=== PATIENT | female | born 1990 | race Caucasian/White ===

== ENCOUNTER 2016-08-16 02:19 | Emergency (ER) | payer MEDICAID ==
[~2016-08-16] VITALS: Ht 172.7 cm; Wt 77.3 kg
[2016-08-16 02:23] VITALS: BP 93/63; PULSE 74; RESP 16; O2SAT 99
--- NOTE | 2016-08-16 02:52 | ED.REPORT ---
HPI-Abd Pain F Under 40 Date of Service Aug 16, 2016 ED Provider: Juan Ramon Vang MD A 26 week 4 day female with a history of gallstones presents to the ED complaining of upper abdominal pain and vomiting x1. The pt was referred to the ED from [facility] following evaluation there. Per [facility] staff, heart tones were in the 130's and the pt was not experiencing contractions. The pt was seen at [facility] for her pain. Nursing Notes Stated Complaint: ABD PAIN Chief Complaint: Female Abdominal Pain Nursing Notes Reviewed: Yes Allergies: Coded Allergies: ibuprofen (Verified Allergy, Unknown, 08/16/16) General Time Seen by MD: 02:52 Chief Complaint Abdominal pain Hx Obtained From: Patient Arrived By: Walk-in Sudden in Onset?: No Recent Healthcare: Recent doctor visit, Recent hospitalization Similar Sx Previous: Yes Past Medical History Past Medical History gallstones Past Surgical History none reported Smoking History Unknown if Ever Smoker Social History Other Social History: Good social support Ambulatory Status Independent Review of Systems Constitutional: Denies: Fever Respiratory: Denies: Non-productive cough, Shortness of breath Cardiovascular: Denies: Chest pain GI: Reports: Abdominal pain, Nausea, Vomiting Musculoskeletal: Denies: Back pain, Neck pain Complete sys rev & neg: except as marked. Skin: Denies Rash Physical Exam Initial Vital Signs Vital Signs (First) Date Time Temp Pulse Resp B/P Pulse Ox O2 Delivery O2 Flow Rate FiO2 08/16/16 02:23 35.9 74 16 93/63 99 Room Air Initial VS: Reviewed, Vital signs normal General/Constitutional: Awake, Alert Respiratory / Chest: Atraumatic, Breath sounds NL, Breath sounds = bilat, No respiratory distress Cardiovascular: Heart rate NL, Regular rhythm, Heart sounds NL Abdomen: Atraumatic, Soft RUQ tenderness Back: Atraumatic, Full range of motion Head / Eyes: Atraumatic, Normocephalic, PERRL, EOMI ENT: Atraumatic, Airway patent, Mucous membranes moist Skin: Atraumatic, Color NL, No rash, Warm, Dry Neurologic: Oriented X3, Speech NL, No motor deficits, No sensory deficits Neck: Atraumatic, Supple, Full range of motion Upper Extremity / MS: Atraumatic, Full range of motion Lower Extremity / Pelvis / MS: Atraumatic, Full range of motion Psychiatric: Affect NL, Mood NL Interpretation & Diagnostics Interpretation & Diagnostics: US : IMPRESSION: Intrauterine gestation with anterior normal-appearing placenta, amniotic fluid index 18.9. Breech position. Maternal cholelithiasis. Mildly prominent common hepatic duct. Lab Results Interpretation Result Diagram: 08/16/16 0051 08/16/16 0051 Test 08/16/16 00:51 White Blood Count 16.2th/mm3 (3.8-10.1) Red Blood Count 3.60mil/mm3 (3.90-5.20) Hemoglobin 11.3g/dL (12.0-15.6) Hematocrit 33.2% (35.0-46.0) Mean Corpuscular Volume 92.2fL (81-100) Mean Corpuscular Hemoglobin 31.4pg (27.0-35.0) Mean Corpuscular Hemoglobin Concent 34.0% (32.0-37.0) Red Cell Distribution Width 12.9% (12.3-15.4) Platelet Count 306bil/L (150-400) Neutrophils (%) (Auto) 84.6% (40-74) Lymphocytes (%) (Auto) 9.2% (14-46) Monocytes (%) (Auto) 5.3% (4-12) Eosinophils (%) (Auto) 0.3% (0-5) Basophils (%) (Auto) 0.1% (0-3) Hold Purple Top Tube Received (Received) Sodium Level 135mEq/L (134-144) Potassium Level 3.3mEq/L (3.5-5.2) Chloride Level 99mEq/L (97-108) Carbon Dioxide Level 21mmol/L (18-29) Blood Urea Nitrogen 8mg/dL (6-20) Creatinine 0.49mg/dL (0.57-1.00) Estimat Glomerular Filtration Rate 217mL/min (>59) Glucose Level 78mg/dL (60-99) Calcium Level 8.5mg/dL (8.5-10.1) Magnesium Level 1.7mg/dL (1.6-2.6) Total Bilirubin 0.4mg/dL (0.0-1.2) Aspartate Amino Transf (AST/SGOT) 33U/L (0-50) Alanine Aminotransferase (ALT/SGPT) 20U/L (0-32) Alkaline Phosphatase 78U/L (25-150) Total Protein 6.6g/dL (6.4-8.4) Albumin 3.1g/dL (3.4-5.0) Lipase 34U/L (13-60) Hold [place]vere Top Tube Received (Received) Lab Results Interpretation: Mild elevation of white blood count ( patient) Re-Eval/Medical Decision Med Decision/Clinical Course Biliary colic without evidence of cholecystitis, hepatitis, pancreatitis, or ductal dilatation. Instructed on avoiding large meals and fatty foods. She will follow up with her primary doctor later this week. Source of Hx: Old records Re-Evaluation/Progress : Time of Eval: 04:42 Patient Status: Condition improved Re-Evaluation/Progress Note: Pt rechecked, who is resting. Lab results and diagnosis are discussed, as well as the plan for discharge. The pt understands and agrees with the plan. All questions are addressed at this time. Counseled Regarding: Diagnosis, Lab results, Need for follow-up, When/why to return to ED Discharge & Departure Primary Impression: Cholelithiasis Cholelithiasis location: gallbladder Cholecystitis presence: without cholecystitis Biliary obstruction: without biliary obstruction Qualified Code : K80.20 - Calculus of gallbladder without cholecystitis without obstruction Additional Impression: Weeks of gestation: 26 weeks Qualified Code: Z3A.26 - 26 weeks gestation of Disposition: Home Discharge Condition All VS Reviewed: Yes Condition: Stable Patient Instructions: Cholelithiasis (DC) Additional Instructions: You have multiple small gallstones in her gallbladder. When you eat a large or fatty meal, the gallbladder contracts forcefully making one of the stones get stuck in the neck of the gallbladder. Than as your food digests it gallbladder relaxes in the stone drops back down into the main part of the gallbladder. No evidence of infection or inflammation of the elbow or liver or pancreas. No head no evidence of blocked ducts. Avoid large meals or fatty foods. Return as needed if he have recurrent pain. Contact your regular doctor for further evaluation and treatment of this. Referrals: Rosalinda Quinteros MD (PCP) Scribe Attestation Portions of this note were transcribed by Margie Berman. I, Dr. Vang personally performed the history, physical exam and medical decision-making; I reviewed and confirmed the accuracy of the information in the transcribed note. Signed by: Brian Gerber, 08/16/2016 and 05:04. copies to: Rosalinda Quinteros MD, Juan Ramon Mcfarlane MD Aug 16, 2016 02:52 MARGIE BERMAN Aug 16, 2016 03:11
[2016-08-16] MEDS ORDERED: 0.9% Sodium Chloride 1,000 ML IV ONE (02:53)
[2016-08-16] MEDS ORDERED: Ondansetron 2 mg/mL 2 mL Inj IVPUSH PRN (02:55)
[2016-08-16 03:10] LABS: BASOPHILS % (AUTO) 0.1 % (0-3); EOSINOPHILS % (AUTO) 0.3 % (0-5); MONOCYTES % (AUTO) 5.3 % (4-12); Mean Corpuscular Hemoglobin 31.4 pg (27.0-35.0); Mean Corpuscular Volume 92.2 fL (81-100); NEUTROPHILS % (AUTO) 84.6 % (40-74); Platelet Count 306 bil/L (150-400)
[2016-08-16 03:27] LABS: Magnesium 1.7 mg/dL (1.6-2.6)
[2016-08-16 05:02] VITALS: BP 101/67; PULSE 92; RESP 20; O2SAT 99
[2016-12-14] MEDS ORDERED: PREN-100 PO (16:59)
[2016-12-14] MEDS ORDERED: SERT50TA9 PO (16:59)
[2016-12-14] MEDS ORDERED: MULT-1018 PO (16:59)
== END 2016-08-16 05:04 | disposition home or self-care (01) ==
LOC: SED 02:19
DX: O99.612 Diseases of the digestive system complicating pregnancy, second trimester (principal); K80.20 Calculus of gallbladder without cholecystitis without obstruction; Z3A.26 26 weeks gestation of pregnancy
CPT/HCPCS: 36415; 80053; 83690; 83735; 85025; 96374; 99285; J2405

== ENCOUNTER 2016-10-12 21:47 | Emergency (ER) | payer MEDICAID ==
[~2016-10-12] VITALS: Ht 172.7 cm; Wt 79.5 kg
[2016-10-12 22:07] VITALS: BP 139/88; PULSE 105; RESP 16; O2SAT 96
--- NOTE | 2016-10-12 22:49 | ED.REPORT ---
HPI-Abd Pain F Under 40 Date of Service Oct 12, 2016 ED Provider: Eric Valente DO A 34 week female with a history of gallstones earlier in her presents to the ED complaining of RUQ abdominal pain. The pain began today, accompanied by nausea, vomiting, and diarrhea x3. The pt was initially seen in the [facility], where she was cleared to come to the ED. The pt experienced similar symptoms earlier in her and was diagnosed with cholelithiasis. She has been controlling this with diet since. The pt denies any known history of kidney stones. Nursing Notes Stated Complaint: STOMACH PAIN-SEEN IN [facility] Chief Complaint: Female Abdominal Pain Nursing Notes Reviewed: Yes Allergies: Coded Allergies: ibuprofen (Verified Allergy, Unknown, 08/16/16) General Time Seen by MD: 22:49 Chief Complaint Abdominal pain Hx Obtained From: Patient Arrived By: Walk-in Sudden in Onset?: No Onset Occurred: 5 - 8 hours ago Symptom Duration: Since onset Recent Healthcare: No recent hospitalization, Recent doctor visit Similar Sx Previous: Yes Past Medical History Past Medical History gallstones during Past Surgical History none reported Smoking History Unknown if Ever Smoker Social History Other Social History: Good social support Ambulatory Status Independent Review of Systems Constitutional: Denies: Fever Respiratory: Denies: Non-productive cough Cardiovascular: Denies: Chest pain GI: Reports: Abdominal pain, Diarrhea, Nausea, Vomiting Musculoskeletal: Denies: Back pain, Neck pain Complete sys rev & neg: except as marked. Physical Exam Initial Vital Signs Vital Signs (First) Date Time Temp Pulse Resp B/P Pulse Ox O2 Delivery O2 Flow Rate FiO2 10/12/16 22:07 36.2 105 16 139/88 96 Room Air Initial VS: Reviewed General/Constitutional: Awake, Alert moderate distress due to pain Respiratory / Chest: Atraumatic, Breath sounds NL, Breath sounds = bilat, No respiratory distress Cardiovascular: Heart rate NL, Regular rhythm, Heart sounds NL Abdomen: Atraumatic, Soft RUQ tenderness Back: Atraumatic, Full range of motion Head / Eyes: Atraumatic, Normocephalic, PERRL, EOMI ENT: Atraumatic, Airway patent, Mucous membranes moist Skin: Atraumatic, Color NL, No rash, Warm, Dry Neurologic: Oriented X3, Speech NL, No motor deficits, No sensory deficits Neck: Atraumatic, Supple, Full range of motion Upper Extremity / MS: Atraumatic, Full range of motion Lower Extremity / Pelvis / MS: Atraumatic, Full range of motion Psychiatric: Affect NL, Mood NL Interpretation & Diagnostics Interpretation & Diagnostics: US Abdomen: CONCLUSION: Gallstones without evidence of cholecystitis. Mild dilation of the partially visualized common duct measuring 6 mm. Lab Results Interpretation Result Diagram: 10/12/168 10/12/16 2248 Test 10/12/16 22:48 White Blood Count 15.0th/mm3 (3.8-10.1) Red Blood Count 3.93mil/mm3 (3.90-5.20) Hemoglobin 11.6g/dL (12.0-15.6) Hematocrit 35.0% (35.0-46.0) Mean Corpuscular Volume 89.1fL (81-100) Mean Corpuscular Hemoglobin 29.5pg (27.0-35.0) Mean Corpuscular Hemoglobin Concent 33.1% (32.0-37.0) Red Cell Distribution Width 12.1% (12.3-15.4) Platelet Count 271bil/L (150-400) Neutrophils (%) (Auto) 79.7% (40-74) Lymphocytes (%) (Auto) 13.7% (14-46) Monocytes (%) (Auto) 5.9% (4-12) Eosinophils (%) (Auto) 0.3% (0-5) Basophils (%) (Auto) 0.1% (0-3) Band Neutrophils % 0% (1-5) Sodium Level 136mEq/L (134-144) Potassium Level 3.7mEq/L (3.5-5.2) Chloride Level 100mEq/L (97-108) Carbon Dioxide Level 21mmol/L (18-29) Blood Urea Nitrogen 6mg/dL (6-20) Creatinine 0.58mg/dL (0.57-1.00) Estimat Glomerular Filtration Rate 177mL/min (>59) Glucose Level 94mg/dL (60-99) Calcium Level 8.9mg/dL (8.5-10.1) Magnesium Level 1.7mg/dL (1.6-2.6) Total Bilirubin 0.6mg/dL (0.0-1.2) Aspartate Amino Transf (AST/SGOT) 24U/L (0-50) Alanine Aminotransferase (ALT/SGPT) 26U/L (0-32) Alkaline Phosphatase 156U/L (25-150) Total Protein 6.8g/dL (6.4-8.4) Albumin 3.3g/dL (3.4-5.0) Lipase 33U/L (13-60) Pulse Oximetry Interpretation Pulse Oximetry Interpretation: 96% on room air Pulse Oximetry: Pulse Ox normal Re-Eval/Medical Decision Med Decision/Clinical Course Laboratory work reassuring. Ultrasound shows stones but no signs of cholecystitis. Fetus looks good. She has been cleared by OB. After some Dilaudid and fluids she looked and felt better. Her abdomen was normal longer tender. She is no longer having pain. I consulted with Dr. Bernal. We will go and discharge her home. Short course of Percocet prescribed for pain. Gallstone aftercare instructions. Opiate warnings. Close obstetric follow-up recommended. Source of Hx: Old records Re-Evaluation/Progress #1: Time of Eval: 00:34 Re-Evaluation/Progress Note: Pt rechecked, whose condition has improved. She is informed of her US results and the plan for further treatment. Re-Evaluation/Progress #2: Time of Eval: 01:07 Patient Status: Condition improved Re-Evaluation/Progress Note: Pt rechecked, who feels prepared for discharge. The plan for discharge is discussed. The pt understands and agrees with the plan. All questions are addressed at this time. Consultation : Referral / Consult Name: Live Bernal MD Call Returned at: 01:14 Diabetes Educator: Agrees with eval, Agrees with plan Note: Spoke with Dr. Bernal, warehouse distribution specialist for pt's PCP, regarding pt's case. Dr. Bernal agrees with the evaluation and plan. Counseled Regarding: Diagnosis, Lab results, Need for follow-up, When/why to return to ED Discharge & Departure Primary Impression: Cholelithiasis Cholelithiasis location: gallbladder Cholecystitis presence: without cholecystitis Biliary obstruction: without biliary obstruction Qualified Code : K80.20 - Calculus of gallbladder without cholecystitis without obstruction Additional Impression: Biliary colic Disposition: Home Discharge Condition All VS Reviewed: Yes Condition: Stable Patient Instructions: Biliary Colic (ED), Cholelithiasis (GEN) Additional Instructions: Maintain a bland, low fat diet for the next few days. Read the aftercare instructions provided. Call in the morning to arrange a follow up appointment with your primary care physician. Review the results of your ultrasound during this appointment. Take 1-2 Percocet every 6-8 hours as needed for severe pain. Do not drink, drive, or consume acetaminophen while taking the Percocet. Take Zofran every 8 hours as needed for nausea. Return to the emergency department if you develop any new or worsening symptoms including fever, jaundice, or increasing/worsening pain. Let your doctor know that you are taking pain medications if you go into labor. Referrals: Rosalinda Quinteros MD (PCP) Brian Attestation Portions of this note were transcribed by Margie Berman. I, Dr. Valente personally performed the history, physical exam and medical decision-making; I reviewed and confirmed the accuracy of the information in the transcribed note. Signed by: Brian Gerber, 10/13/2016 and 0115. copies to: Rosalinda Quinteros MD, Todd P DO Oct 12, 2016 22:49 MARGIE BERMAN Oct 12, 2016 23:14
[2016-10-12] MEDS ORDERED: Ondansetron 2 mg/mL 2 mL Inj ONE (22:50)
[2016-10-12] MEDS ORDERED: HYDROmorphone 0.5 mg/0.5 mL iSecure Syringe ONE (22:50)
[2016-10-12] MEDS ORDERED: HYDROmorphone 0.5 mg/0.5 mL iSecure Syringe IVPUSH PRN (22:50)
[2016-10-12] MEDS ORDERED: Ondansetron 2 mg/mL 2 mL Inj IVPUSH PRN (22:50)
[2016-10-12 22:54] LABS: BASOPHILS % (AUTO) 0.1 % (0-3); EOSINOPHILS % (AUTO) 0.3 % (0-5); MONOCYTES % (AUTO) 5.9 % (4-12); Mean Corpuscular Hemoglobin 29.5 pg (27.0-35.0); Mean Corpuscular Volume 89.1 fL (81-100); NEUTROPHILS % (AUTO) 79.7 % (40-74); Platelet Count 271 bil/L (150-400)
[2016-10-12 23:21] LABS: Magnesium 1.7 mg/dL (1.6-2.6)
[2016-10-13] MEDS ORDERED: _Ondansetron ODT 4 mg Tablet PO PRN (01:10)
[2016-10-13] MEDS ORDERED: _oxyCODONE/APAP 5-325 mg Tablet PO PRN (01:10)
[2016-10-13] MEDS ORDERED: oxyCODONE-Acetamin 5-325 mg Tablet PO ONE (01:45)
[2016-10-13 01:53] VITALS: BP 122/74; PULSE 76; RESP 14; O2SAT 99
--- NOTE | 2016-10-13 14:31 | DRSVH ---
PROCEDURE: US ABDOMEN ([id number]) INDICATIONS: concern for biliary dz TECHNIQUE: Real-time scanning was performed of the abdominal and retroperitoneal organs, with image documentatio n. COMPARISON: None. FINDINGS: Liver: Liver is normal in size and homogeneous in echotexture. Gallbladder: Multiple gallstones present, several which may be impacted within the gallbladder neck. No gallbladder wall thickening or pericholecystic fluid. Negative sonographic Beltre sign. Biliary ducts: Intrahepatic bile ducts are non-dilated. Extrahepatic bile duct caliber measures 2.6 mm. Normal is 6-7 mm or less in diameter, or 10 mm or less post-cholecystectomy. Pancreas: Visualized portions of the pancreas are sonographically normal. Spleen: Spleen is normal in size and homogeneous in echotexture. Kidneys: Kidneys are normal in size and echotexture. Right kidney measures 11.7 cm long; left kidne y measures 11.6 cm long. No hydronephrosis or nephrolithiasis. No solid masses. Aorta: Visualized aorta is normal in caliber at less than 3 cm. Iliacs: Proximal common iliac arteries are normal in caliber at less than 2.5 cm. IVC: Intrahepatic inferior vena cava is patent. Miscellaneous: No free abdominal fluid. Patient is ampullary measured at 143 beats per min malu. IMPRESSION: 1. Cholelithiasis without evidence of cholecystitis and several of the stones may be impacted. Corre late clinically. Dictated by: Cecilio Aguilar [facility] Interpreted: Charis De Luna MD on 10/13/2016 at 14:28 Transcribed by: JOELLEN on 10/13/2016 at 14:30 Approved by: Charis De Luna MD, PhD on 10/13/2016 at 17:24
[2016-12-14] MEDS ORDERED: MULT-1018 PO (16:59)
[2016-12-14] MEDS ORDERED: PREN-100 PO (16:59)
[2016-12-14] MEDS ORDERED: SERT50TA9 PO (16:59)
== END 2016-10-13 01:56 | disposition home or self-care (01) ==
LOC: SED 21:47
DX: O99.613 Diseases of the digestive system complicating pregnancy, third trimester (principal); K80.20 Calculus of gallbladder without cholecystitis without obstruction; Z3A.34 34 weeks gestation of pregnancy; Z87.59 Personal history of other complications of pregnancy, childbirth and the puerperium; Z88.6 Allergy status to analgesic agent
CPT/HCPCS: 36415; 76700; 80053; 83690; 83735; 85025; 96374; 96375; 99285; J1170; J2405

== ENCOUNTER 2016-11-12 22:36 | Inpatient (IN) | payer MEDICAID ==
[~2016-11-12] VITALS: Ht 172.7 cm; Wt 80.7 kg
[2016-11-12] MEDS ORDERED: hydrOXYzine Inj 50 MG/1 mL SDV IM ONE (23:30)
[2016-11-13] MEDS ORDERED: Lactated Ringer's 1,000 ML IV PRN (00:06)
[2016-11-13] MEDS ORDERED: fentaNYL-PF 50 mCg/mL 2 mL Inj IVPUSH PRN (00:10)
[2016-11-13] MEDS ORDERED: Sodium Chloride LOK Flush 10 mL Syringe IVFLUSH PRN (00:10)
[2016-11-13] MEDS ORDERED: Oxytocin 30 Units/500 mL LR 30 UNITS in IV Premix 1 EACH IV PRN ×2 (00:10→11:00)
[2016-11-13] MEDS ORDERED: Carboprost 250 mCg/mL Inj IM PRN ×2 (00:10→11:00)
[2016-11-13] MEDS ORDERED: Oxytocin 10 Unit/mL Inj IM PRN ×2 (00:10→11:00)
[2016-11-13] MEDS ORDERED: Methylergonovine 0.2 mg/mL Inj IM PRN ×2 (00:10→11:00)
[2016-11-13] MEDS ORDERED: Hemorrhage Kit, Post Partum XX ONE ×2 (00:10→11:00)
[2016-11-13 01:09] LABS: Mean Corpuscular Hemoglobin 28.2 pg (27.0-35.0)
[2016-11-13] MEDS ORDERED: Oxytocin 30 Units/500 mL LR Premix IV SCH (03:35)
[2016-11-13] MEDS ORDERED: Lactated Ringer's 1,000 ML IV SCH ×2 (03:43→10:57)
[2016-11-13] MEDS ORDERED: Lactated Ringer's 500 ML IV ONE (03:43)
[2016-11-13] MEDS ORDERED: Ondansetron 2 mg/mL 2 mL Inj IVPUSH PRN (03:45)
[2016-11-13] MEDS ORDERED: fentaNYL 2 mCg/mL-Bupiv 0.125% 100 ML EPIDURAL SCH (03:45)
[2016-11-13] MEDS ORDERED: EPHEDrine Sulfate 50 mg/mL Inj IVPUSH PRN (03:45)
[2016-11-13] MEDS ORDERED: Atropine 1 mg/10 mL (Code) Syringe IVPUSH PRN (03:45)
[2016-11-13] MEDS ORDERED: PNV91TAB6 PO (04:00)
[2016-11-13] MEDS ORDERED: SERT20OR6 PO (04:01)
--- NOTE | 2016-11-13 04:40 | PCM.HPANE ---
Patient Data Date of Service: Nov 13, 2016 Surgeon Admitting Provider:Rosalinda Quinteros MD Attending Provider:Rosalinda Quinteros MD Primary Care Physician:Rosalinda Quinteros MD Other Provider:Tracy Castillo Anesthesia Reason for Visit Term Labor TERM LABOR Ht/WT & BMI Body Mass Index Allergies Coded Allergies: ibuprofen (Verified Allergy, Unknown, 08/16/16) Past Anesthesia History Anesthesia History: Denies:: Abnormal Airway Diabetes History Hx Diabetes?: No MRSA MRSA: No Medications Hypertension Medication: No Reported Medications Sertraline HCl (Sertraline)20 Mg/1 Ml Oral.conc50 Mg PO DAILY PRN AD #1 BOTTLE Ref 0 11/13/16 Pnv95/Ferrous Fumarate/FA ( Vitamin Tablet)28 Mg Iron-800 Mcg Tablet1 Each PO DAILY 11/13/16 History Hx of Heart Problems?: No Cardiovascular History: Denies:: Congestive Heart Failure Hypertension Hx of Respiratory Problem?: No Respiratory History: Denies:: Tuberculosis Hx of GI Problems?: Yes (biliary colic with ) Hx Surgeries?: No Hx Diabetes: No Hx Alcohol Use: NoHx Substance Use: No Smoking Status: Unknown if Ever Smoker Have You Smoked inLast 12 mo: No Stop/Bang Risk Assessment Category Category 1A: Patient has history of documented sleep apnea, and HAS NOT received any narcotic, sedative or anesthesia administration during this stay. Category 1B: Patient has history of documented sleep apnea, and HAS received any narcotic , sedative or anesthesia administration during this stay Category 2: Patient has SUSPECTED Obstructive Sleep Apnea, and HAS received any narcotic , sedative or anesthesia administration during this stay. Category 3: Patient has SUSPECTED Obstructive Sleep Apnea and HAS NOT received narcotic, sedative or anesthesia administration during this stay. Category 4: Outpatient in Procedural Areas with known sleep apnea or who screen positive for High Risk via the STOP/BANG questionnaire. Exam Exam Vital Signs bp 138/75, hr 80 prior to placement, 100% on room air, breathing comfortably, afebrile General Appearance: Alert, Oriented X3, Cooperative HEENT/AIRWAY: MP 1 Lungs: Clear to Auscultation Heart: Exam Unremarkable, Regular Rate/Rhythm, Normal S1, Normal S2 Meds/Labs/Diagnostics Labs Test 11/13/16 00:55 White Blood Count 12.8th/mm3 (3.8-10.1) Red Blood Count 3.93mil/mm3 (3.90-5.20) Hemoglobin 11.1g/dL (12.0-15.6) Hematocrit 34.2% (35.0-46.0) Mean Corpuscular Volume 87.0fL (81-100) Mean Corpuscular Hemoglobin 28.2pg (27.0-35.0) Mean Corpuscular Hemoglobin Concent 32.5% (32.0-37.0) Red Cell Distribution Width 13.2% (12.3-15.4) Platelet Count 252bil/L (150-400) Plan Impression Patient chart reviewed, patient interviewed and anesthestic plan with risks, benefits, and alternatives discussed, and informed consent obtained. ASA Physical Status: ASA2 Mod Systemic Disease Anesthetic Plan: Epidural Bene/Risks/Altern/Consents: Yes HP Complete Prior to Induction: Yes Ildefonso Jimenez MD Nov 13, 2016 03:48
[2016-11-13] MEDS ORDERED: Sodium Chloride LOK Flush 10 mL Syringe IVFLUSH SCH (08:30)
--- NOTE | 2016-11-13 09:04 | PCM.HPOB ---
Subjective Date of Service: Nov 13, 2016 Referring Provider: Admitting Physician: Rosalinda Quinteros MD Primary Care Physician: Rosalinda Quinteros MD Attending Physician: Rosalinda Quinteros MD Chief Complaint at 39+1 weeks with painful contractions and intermittent fluid leaking PV History of Present History of Present Illness Patient is a pleasant 26 year who has had regular PN care and came to the Center yesterday morning with mild contractions. She thought she had passed her mucous plug at home. She was appropriately monitored, and FHR was reassuring, and she was d/c home, as she was 1 cm dilated and 50% effaced at that time, and only yash every 8 to 10 minutes. Patient reports that her contractions started picking up by 6pm last evening, and she came back to the Center and was 2 cm/50% effaced and yash every 4 to 5 minutes. She also reported intermittent clear fluid PV and amnisure was positive when tested, and she was admitted. Her contractions picked up a little overnight, and she had an epidural placed at 04:00 this morning. She was 3 cm and 75% effaced at that time. She has been sleeping off and on since that time. When checked currently, she was 5 to 6 cm. 100% effaeced, with vertex at spines to -1 station. AROM of her forewaters was done for a moderate amount of clear fluid with normal bloody show. She is on pitocin augmentation and is currently at 10 milliunits /minute. FHR baseline is in the 130's with good BTBV, there are sleep wake cycles with periods of minimal variability. GBS is negative, and vital signs have been stable. is anticipated, and EFW 7 to 7 1/2 lb range. her has been complicated by recurrent episodes of biliary colic, with 2 ER visits for this with nausea, and vomiting and upper abdominal pain. She has been seen by Dr. Gutierrez for this and gallbladder surgery is planned electively in the . OB History: (2), Para (0), Term (0), Pre-term (0), ( 1), Living (0) Obstetrical Complications: Other ( was complicated by recurrent biliary colic) Past Medical History Obstetrical History: She had miscarriage at 6 weeks GA back in 2007, passed on it own, with no complications. Gynecologic History: Patient has not had any STD's or abnormal pap smears. Medical History: She has had depression in the past, and this did flare up in the . She was started on Sertraline and dose titrated to 75mg daily, and she has done well with this. 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 She had an isolated seizure at the age of 16, and fractured her femur in infancy due to accidental ground level fall. This was treated with closed reduction and casting. Surgical History: She has not had any previous surgeries. Social History: She is , and has some college education. She has worked in a [employer]. Hx Tobacco Use: Yes Smoking Status: Former Smoker Hx Alcohol Use: No Hx Substance Use: No (she was smuking 1 ppd prior to .) Past Family History Living Arrangement: with Family Genetic Screening/Counseling Genetic Screening/Counseling: Unknown Baby father-had child w defect: No Review of Systems Constitutional: Y: Change of appitite, Dizziness, Fever Eyes: Denies: Blurred Vision, Pain, Redness, Vision Changes ENT: Reports: Dental Problems, Denies: Ear Pain, Nasal Congestion, Throat Pain Cardiovascular: Denies: Chest Pain, Edema Respiratory: Denies: Cough, SOB with Exertion Gastrointestinal: Denies: Abdominal Pain, Constipation, Diarrhea, Heartburn, Nausea, Vomiting Genitourinary: Denies: Dysuria, Hematuria Musculoskeletal: Denies: Redness, Swelling Skin/Breasts: Denies: Bruising, Discharge Skin: Denies: Jaundice Neurological: Denies: Change in Speech Psychologic: Denies: Anxious, Depression Hematologic: Denies: Adenopathy Medications Home medications vitamins 1 tab PO dialy Sertraline 75mg PO daily Allergy Coded Allergies: ibuprofen (Verified Allergy, Unknown, 08/16/16) Exam Vital Signs 98/58 to 109/69, Temp 37.1, HR 78 Exam FHR 130 to 140's with good BTBV, good accelerations. Some clear sleep wake cycles with decreased variability. Constitutional: Well-developed, Well-nourished, Normal habitus HEENT: PERRLA, EOMI, Mucous Membr Moist/[place] Lungs: Clear to Auscultation, Normal Air Movement Heart: Regular Rate/Rhythm, Normal S1, Normal S2, No Murmurs/Rubs/Gallops Abdomen: Gravid, Normal bowel sounds, Soft, No tenderness Lymphatic: Normal: Neck Palpation of Nodes Extremities: Pulses Palpable x4, Warm, No Edema Neurological/Psychiatric: Alert, Oriented X3, Cooperative, No Acute Distress Neuro: Grossly Neurologically Intact Labs/Diagnostics Labs her blood type is O+ with no abnormal antibodies. Hemoglobin was 11.1, platelets 252. pap test was negative, rubella and varicella are immune, RPR was nonreactive, urine culture showed mixed urogenital kiana, hepatitis B s Ag was negative, Hepatitis C < 0.1, TSH was normal at 1.39. HSV types 1 and 2 are both negative. GC/Chlamydia was negative. GBS was negative, GTT was 107. Maternal Blood Type: O Hx Rho(D) Immune Globulin: No Antibody Screen: negative Group B Strep Results: Negative Previous Infant with GBS: No Rubella: Immune Lab History: Negative for: Hx Chicken Pox, Hx Gonorrhea, Hx HIV, Hx Herpes, Hx Syphilis OB Intrapartum Assessment/Plan Assessment patient is a very pleasant 26 year old female who has had regular PN care and started in labor at 39+1 weeks yesterday evening. She has been laboring overnight, and epidural has been placed. Pitocin augmentation was started, and is at 10milliunits/minute. AROM was done of the forebag of benitez for clear fluid with normal bloody show. has been complicated by biliary colic, and patient was consulted by surgery for this recently; cholecystectomy is planned . FHR is 130's and reactive. Problems: (1) 39 weeks gestation of Status: Acute ICD Code: Z3A.39 (2) History of biliary colic Status: Acute ICD Code: Z87.19 Pain Evaluation: Adequate Pain Control Rosalinda Quinteros MD Nov 13, 2016 09:04
[2016-11-13] MEDS ORDERED: LANOlin HPA 7 Gm Ointment TOPICAL PRN (11:00)
--- NOTE | 2016-11-13 11:01 | PCM.HPOB ---
Subjective Referring Provider: Admitting Physician: Rosalinda Quinteros MD Primary Care Physician: Rosalinda Quinteros MD Attending Physician: Rosalinda Quinteros MD Chief Complaint at 39+1 weeks with painful contractions and intermittent fluid leaking PV History of Present History of Present Illness Patient is a pleasant 26 year who has had regular PN care and came to the Center yesterday morning with mild contractions. She thought she had passed her mucous plug at home. She was appropriately monitored, and FHR was reassuring, and she was d/c home, as she was 1 cm dilated and 50% effaced at that time, and only yash every 8 to 10 minutes. Patient reports that her contractions started picking up by 6pm last evening, and she came back to the Center and was 2 cm/50% effaced and yash every 4 to 5 minutes. She also reported intermittent clear fluid PV and amnisure was positive when tested, and she was admitted. Her contractions picked up a little overnight, and she had an epidural placed at 04:00 this morning. She was 3 cm and 75% effaced at that time. She has been sleeping off and on since that time. When checked currently, she was 5 to 6 cm. 100% effaeced, with vertex at spines to -1 station. AROM of her forewaters was done for a moderate amount of clear fluid with normal bloody show. She is on pitocin augmentation and is currently at 10 milliunits /minute. FHR baseline is in the 130's with good BTBV, there are sleep wake cycles with periods of minimal variability. GBS is negative, and vital signs have been stable. is anticipated, and EFW 7 to 7 1/2 lb range. her has been complicated by recurrent episodes of biliary colic, with 2 ER visits for this with nausea, and vomiting and upper abdominal pain. She has been seen by Dr. Gutierrez for this and gallbladder surgery is planned electively in the . Blood pressures during the have been normal, and weight gain was 16 pounds. Genetic Screening/Counseling Genetic Screening/Counseling: Unknown Baby father-had child w defect: No Allergy Coded Allergies: ibuprofen (Verified Allergy, Unknown, 08/16/16) Labs/Diagnostics Maternal Blood Type: O Hx Rho(D) Immune Globulin: No Antibody Screen: negative Group B Strep Results: Negative Previous with GBS: No Rubella: Immune Lab History: Negative for: Hx Chicken Pox, Hx Gonorrhea, Hx HIV, Hx Herpes, Hx Syphilis OB Intrapartum Assessment/Plan Problems: (1) 39 weeks gestation of Status: Acute ICD Code: Z3A.39 (2) History of biliary colic Status: Acute ICD Code: Z87.19 Pain Evaluation: Adequate Pain Control Rosalinda Quinteros MD Nov 13, 2016 11:01
--- NOTE | 2016-11-13 11:07 | PCM.OBVAG ---
Vaginal Delivery Date of Service Nov 13, 2016 Pre Operative Diagnosis Pre Operative Diagnosis #1. at 39 weeks +1 day with spontaneous labor #2. Pitocin augmentation of labor #3. Epidural analgesia #4. Spontaneous vaginal delivery of a live born female infant with a nuchal and body cord. Post Operative Diagnosis Post Operative Diagnosis #1. at 39 weeks +1 day with spontaneous labor #2. Pitocin augmentation of labor #3. Epidural analgesia #4. Spontaneous vaginal delivery of a live born female infant with a nuchal and body cord Procedure Obstetical Procedure: Normal Spontaneous Vaginal Delivery, Episiotomy College Service Officer/Concrete Hopper Operator Provider and Concrete Hopper Operator: Dr. Rosalinda Quinteros Indication for Procedure Induction: Induction of labor, AROM, Progressed normally through labor Findings Obstetrical Findings: (Female), Cord (3 Vessel), Presentation (Vertex) , 1 minute (7), 5 minutes (9), Placenta (Intact/Normal) Analgesia/Medications Obstetrical Anesthesia: Epidural Procedure Details Procedure Details Patient is a very pleasant 26-year-old SAB 1 who has EDC 11/18/2016 and has had regular care. She started with prodromal labor yesterday morning and came to the center for evaluation. heart rate was reassuring and she was only 1 cm dilated and yash irregularly at that time and was discharged home. Contractions picked up over the course of the day and she came to the center again just before midnight and was 2 cm dilated, 50% effaced, with vertex presentation. She had noted intermittent leaking of clear vaginal fluid and was amnesia are positive. She was admitted and progressed in labor overnight. Epidural was placed at 3 cm and Pitocin augmentation was started. heart rate was reactive with baseline in the 130s to 140s throughout labor and delivery with good [id number]-[id number] variability and some clear sleep-wake cycles. AROM was done at around 5 cm and mother progressed nicely thereafter to complete over the next hour or so. Her first stage of labor was approximately 8 hours, second stage of labor was 42 minutes, and third stage of labor was 7 minutes. She went onto spontaneous vaginal delivery of a live born female weight pending at time of this dictation. Apgars were 7 at 1 minute and 9 at 5 minutes. There was a nuchal cord and also a cord wrapped around the body that the baby delivered through. Baby had had some variable decelerations with pushing down to the 80 to 90s and good recovery to baseline between contractions. Mother's position had been changed thru out active labor and during pushing, and she was also given intermittent supplemental oxygen. Fluid always remained clear and baby and mother tolerated labor well. A second-degree midline episiotomy was made with no extension and this was repaired with 3-0 Vicryl to achieve good cosmesis and hemostasis. Placenta delivered intact with a three-vessel cord and estimated blood loss at time of delivery was 350 mils. Mother does intend to breast-feed and routine care is anticipated for both of them. Specimen Placenta was for routine disposal and appeared intact and normal. IV Intake/Output Catheters: Urethral 2 Way [place] Blood Loss & Administration Estimated Blood Loss: 350 Post Procedure Plan Post delivery Condition: Mom stable Rosalinda Quinteros MD Nov 13, 2016 11:07
[2016-11-13] MEDS: Witch Hazel-Glycerin Pads TOPICAL PRN (12:17)
[2016-11-13] MEDS: Benzocaine (Dermoplast) 20% 60 Gm Spray TOPICAL PRN (12:17)
[2016-11-13] MEDS ORDERED: Ascorbic Acid 500 mg Tablet PO SCH (17:30)
[2016-11-13 18:18] LABS: Mean Corpuscular Hemoglobin 27.8 pg (27.0-35.0); Mean Corpuscular Volume 87.3 fL (81-100)
--- NOTE | 2016-11-13 18:23 | PCM.PNOBPP ---
Subjective Date of Service Nov 13, 2016 Post : Spontaneous Vaginal Delivery Subjective Tiffanie is now a GBS-negative, post- mother who has been feeling nauseated and complaining of headache since this mid-afternoon. Her nursing team gave me a call, as I am covering for Dr. Quinteros today. Nursing team reports Tiffanie's vital signs have been stable, she has been afebrile, but they are concerned about her malaise and pale color. history only significant for biliary colic. My review of chart shows a low hemoglobin of just over 11.0 mg/dL when she arrived in the center for admission. Pain Management: PO pain meds Gastrointestinal: Complains of Nausea Postop Activity: Other (Not ambulating, feels terrible sitting up. Headache does not improve lying down.) Labs Laboratory Tests Test 11/13/16 00:55 11/13/16 18:05 White Blood Count 12.8th/mm3 (3.8-10.1) Red Blood Count 3.93mil/mm3 (3.90-5.20) Hemoglobin 11.1g/dL (12.0-15.6) Hematocrit 34.2% (35.0-46.0) Mean Corpuscular Volume 87.0fL (81-100) Mean Corpuscular Hemoglobin 28.2pg (27.0-35.0) Mean Corpuscular Hemoglobin Concent 32.5% (32.0-37.0) Red Cell Distribution Width 13.2% (12.3-15.4) Platelet Count 252bil/L (150-400) Group B Strep Results: Negative Rubella: Immune Blood Type: O RH Type: Positive Labs Laboratory Tests 11/13/16 18:05: Exam Vital Signs Vital Signs: VS reviewed, stable Exam Abdomen: Fundus firm, Other (RUQ tenderness) : Voiding without difficulty Extremities: No tenderness/swelling Lungs: Clear to Auscultation, Clear to Percussion Heart: Regular Rate/Rhythm, Normal S1, Normal S2 General: Alert, Oriented X3, Cooperative, Other (malaise and fatigue, pale, clammy) OB Post Assessment/Plan Assessment 26-yo post- mom with a history of biliary colic, anemia on admission and now feeling extreme nausea, fatigue, malaise. Differential includes: a. Post- anemia b. Biliary tree complication c. Pancreatitis d. Spinal headache (not as likely, given headache does not improve with laying flat) Problems: (1) 39 weeks gestation of Status: Resolved ICD Code: Z3A.39 (2) History of biliary colic Status: Acute ICD Code: Z87.19 (3) anemia Status: Acute ICD Code: O90.81 Pain Evaluation: Adequate Pain Control Post plan: Continue routine post care Plan: 1. Stat labs: CBC, CMP, lipase, blood cultures x2 2. Blood transfusion consent form signed, as I strongly suspect symptomatic anemia. If hemoglobin is appreciably lower, we will transfer 1 unit PRBC. cc: Rosalinda Quinteros MD, David M DO Nov 13, 2016 18:23
--- NOTE | 2016-11-13 21:10 | DRSVH ---
PROCEDURE: US ABDOMEN ([id number]) INDICATIONS: nausea and RUQ tenderness, hx cholelithiasis TECHNIQUE: Real-time scanning was performed of the abdominal and retroperitoneal organs, with image documentatio n. COMPARISON: None. FINDINGS: Liver: Liver is normal in size at 16.6 cm. and homogeneous in echotexture. Gallbladder: Multiple small gallstones are seen in the gallbladder. No wall thickening or pericholecy stic fluid or tenderness is identified. Biliary ducts: Intrahepatic bile ducts are non-dilated. Extrahepatic bile duct caliber measures 4.8 mm. Normal is 6-7 mm or less in diameter, or 10 mm or less post-cholecystectomy. Pancreas: The head and body of the pancreas are considered normal. Tail is obscured by bowel gas. Spleen: Spleen is normal in size and homogeneous in echotexture. Maximum dimension of the spleen is 8.5 cm. Kidneys: Kidneys are normal in size and echotexture. Right kidney measures 9.7 cm long; left kidney measures 12.5 cm long. No hydronephrosis or nephrolithiasis. No solid masses. Aorta: The entire abdominal aorta is normal in caliber at less than 3 cm. Iliacs: Proximal common iliac arteries are normal in caliber at less than 2.5 cm. the right is 9 an d the left 8 mm in diameter. IVC: Intrahepatic inferior vena cava is patent. Miscellaneous: No free abdominal fluid. IMPRESSION: Multiple small gallstones are present in the gallbladder. No changes to indicate an acute cholecystitis are seen. No other abnormality is found in the abdomen ultrasound. However the tail of the pancreas was obscure d by bowel gas. Dictated by: Harvey Burch M.D. on 11/13/2016 at 21:06 Approved by: Harvey Burch M.D. on 11/13/2016 at 21:08
[2016-11-13] MEDS: HYDROcodone-APAP 5-325 mg Tablet PO PRN (22:35)
[2016-11-14] MEDS: HYDROcodone-APAP 5-325 mg Tablet PO PRN ×3 (03:14→14:40)
[2016-11-14 07:12] LABS: Mean Corpuscular Hemoglobin 28.1 pg (27.0-35.0); Mean Corpuscular Volume 88.6 fL (81-100)
--- NOTE | 2016-11-14 11:10 | PCM.DC.OB ---
Obstetrical Discharge Summary Date of Service Nov 14, 2016 Date of hospital admission Nov 13, 2016 at 00:10 Date of Discharge: Nov 14, 2016 Providers Admitting Physician: Rosalinda Quinteros MD Primary Care Physician: Rosalinda Quinteros MD Attending Physician: Rosalinda Quinteros MD Diagnosis at Time of Discharge 1. at 39 weeks +1 day with spontaneous onset of labor 2. Pitocin augmentation of labor 3. Epidural analgesia 4. Spontaneous vaginal delivery of a live born female who presented with cord wrapped around the neck and body 5. History of delivery colic during 6. Moderate anemia noted Problems: (1) 39 weeks gestation of Status: Resolved ICD Code: Z3A.39 (2) History of biliary colic Status: Acute ICD Code: Z87.19 (3) anemia Status: Acute ICD Code: O90.81 (4) (normal spontaneous vaginal delivery) Status: Acute ICD Code: O80 Brief History and Physical: Patient is a pleasant 26 year who has had regular PN care and came to the Center yesterday morning with mild contractions. She thought she had passed her mucous plug at home. She was appropriately monitored, and FHR was reassuring, and she was d/c home, as she was 1 cm dilated and 50% effaced at that time, and only yash every 8 to 10 minutes. Patient reports that her contractions started picking up by 6pm last evening, and she came back to the Center and was 2 cm/50% effaced and yash every 4 to 5 minutes. She also reported intermittent clear fluid PV and amnisure was positive when tested, and she was admitted. Her contractions picked up a little overnight, and she had an epidural placed at 04:00 this morning. She was 3 cm and 75% effaced at that time. She has been sleeping off and on since that time. When checked currently, she was 5 to 6 cm. 100% effaeced, with vertex at spines to -1 station. AROM of her forewaters was done for a moderate amount of clear fluid with normal bloody show. She is on pitocin augmentation and is currently at 10 milliunits /minute. FHR baseline is in the 130's with good BTBV, there are sleep wake cycles with periods of minimal variability. GBS is negative, and vital signs have been stable. is anticipated, and EFW 7 to 7 1/2 lb range. her has been complicated by recurrent episodes of biliary colic, with 2 ER visits for this with nausea, and vomiting and upper abdominal pain. She has been seen by Dr. Gutierrez for this and gallbladder surgery is planned electively in the . Blood pressures during the have been normal, and weight gain was 16 pounds. Hospital Course: Patient is a very pleasant 26-year-old who has an EDC of 11/18/2016. She has had regular care and did have several episodes of delivery colic during the . She presented to the center at 39 weeks +1 day and early labor with a height water leak. She had Pitocin augmentation of labor and an epidural placed. AROM was done at 5 cm for a moderate amount of clear fluid with normal bloody show. She made good progress through labor and her first stage of labor was approximately 8 hours, second stage 42 minutes third stage 7 minutes. heart rate was reactive and labor and delivery with baseline in the 1:30 to 140s and good [id number] variability. As the baby descended with pushing, there were some deep variable decelerations to the 80s to 90s but fluid always remained clear, maternal position was changed with pushing and intermittent oxygen was used. Both mom and baby tolerated labor very nicely and she went onto spontaneous vaginal delivery of a live born female . Baby was noted to have cord wrapped around the neck as well as the body at time of delivery. Baby was placed on the maternal abdomen and delayed cord clamping was employed. Placenta delivered intact with three- vessel cord and my estimated blood loss at time of delivery was around 350 mils. A second-degree midline episiotomy had been made to help facilitate delivery of the head and this was repaired in the usual manner with 3-0 Vicryl to achieve good cosmesis and hemostasis. There was no extension of this. Over the course of the afternoon, patient was noted to have malaise with extreme fatigue and nausea and lightheadedness with associated headache. Dr. Cabezas came in and evaluated her and there was concern for anemia. Her vital signs had been stable with blood pressure ranging 108/66-116/76. Heart rate 62-81, temperature 36.8-37.2. She had been awake most of the previous night and was very tired. Admitting hemoglobin had been 11.1 with hematocrit of 34.2, with WBC of 12.8. Blood work done at time of this episode showed hemoglobin of 9.4 with hematocrit of 29.5 and white count of 17.3, which retrospectively was likely due to the stress response of labor and delivery. Patient did not have any fevers. This morning, she is feeling much better but is appropriately sore and achy. White blood cell count has come down to 13.7, hemoglobin is 8.4, and hematocrit is 26.5. Platelets have ranged between 252- 204. She has been up and ambulating and is voiding. She has not yet had a bowel movement but is passing flatus. She is tolerating a full diet. Nursing is working with her for breast-feeding and she is bonding well with her baby. Pain control has been good with Tylenol or Vicodin. She feels ready to go home later this afternoon. She has not had any further lightheadedness, nausea, or headaches since last evening. Pnv95/Ferrous Fumarate/FA ( Vitamin Tablet) 28 Mg Iron-800 Mcg Tablet 1 EACH PO DAILY (Reported) Last Taken: Unknown Dose on 11/12/16 Sertraline HCl (Sertraline) 20 Mg/1 Ml Oral.conc 50 MG PO DAILY PRN PRN AD (Reported) Last Taken: Unknown Dose on 11/12/16 Discharge Medications: 1. Sertraline 75 mg by mouth daily 2. vitamins 1 tab by mouth daily while breast-feeding 3. Ferrous sulfate 325 mg by mouth twice daily 3 months 4. Colace 100 mg by mouth twice a day when necessary for constipation 5. Vicodin 5/325 one tab by mouth every 6 hours when necessary for pain Follow-up plan Patient will call Dr. Gutierrez's office later on this week letting him know that she has delivered and they can tentatively schedule for elective laparoscopic cholecystectomy sometime in the next few weeks. She will call my office with any questions or concerns. Discharge Activity-General: Pelvic Rest for 6 weeks, Pelvic Rest, Try not to overdue, Be up and about, Balance rest and activity, Activity as pain allows, Activity as energy allows Patient instructions Patient should breast-feed every 2-3 hours on demand, assuring good latch. Her milk will likely come in in the next 1-2 days and baby will be more satisfied with this. Rosalinda Quinteros MD Nov 14, 2016 11:10
--- NOTE | 2016-11-14 11:21 | PCM.DIOB ---
Obstetrical Disch Instruction Date of Service: Nov 14, 2016 Dates of Hospitalization Date of Hospital Admission Nov 13, 2016 at 00:10 Providers Admitting Physician: Rosalinda Quinteros MD Primary Care Physician: Rosalinda Quinteros MD Attending Physician: Rosalinda Quinteros MD Discharge Diagnosis Discharge Diagnosis 1. at 39 weeks +1 day with spontaneous onset of labor 2. Pitocin augmentation of labor 3. Epidural analgesia 4. Spontaneous vaginal delivery of a live born female infant with nuchal cord and cord wrapped around the body 5. History of delivery colic during 6. Moderate anemia Post Operative diagnosis 1. at 39 weeks +1 day with spontaneous onset of labor 2. Pitocin augmentation of labor 3. Epidural analgesia 4. Spontaneous vaginal delivery of a live born female infant with nuchal cord and cord wrapped around the body at time of delivery 5. History of recurrent biliary colic during 6. Moderate anemia Problems: (1) 39 weeks gestation of Status: Resolved ICD Code: Z3A.39 (2) History of biliary colic Status: Acute ICD Code: Z87.19 (3) anemia Status: Acute ICD Code: O90.81 (4) (normal spontaneous vaginal delivery) Status: Acute ICD Code: O80 Diet Discharge Diet: No restrictions Activity Discharge Activity-General: Pelvic Rest for 6 weeks, Try not to overdue, Be up and about, Balance rest and activity, Activity as pain allows, Activity as energy allows Dressing and Incisional Care Hygiene: May shower, Perineal care, Sitz bath, Dermoplast spray, Witch Elena pads, Ice Additional Instructions Discharge Instructions Patient should breast-feed every 2-3 hours on demand, assuring good latch. Her milk will likely come in in the next 1-2 days and baby will be more satisfied with this. Follow Up Plan Follow Up Plan Please call Dr. Gutierrez's office this week to see about getting the gallbladder surgery scheduled sometime in the next few weeks Follow-up Provider (F9): Rosalinda Quinteros MD Follow-up appointment: Weeks (6) Call your provider for: Fever or Chills, Shortness of breath, Heavy vaginal bleeding, Epigastric pain, Excessive constipation, Vaginal discomfort, Red painful breasts, Other (recurrence of biliary colic) Rosalinda Quinteros MD Nov 14, 2016 11:21
[2016-11-14] MEDS ORDERED: DOCU-41 PO (11:23)
[2016-11-14] MEDS ORDERED: SERT50TA9 PO (11:23)
[2016-11-14] MEDS ORDERED: FERR-74 PO (11:23)
[2016-11-14] MEDS ORDERED: HYDR-4003 PO (11:23)
[2016-11-14] MEDS ORDERED: Ascorbic Acid PO (11:23)
[2016-11-14 17:08] VITALS: BP 117/72; PULSE 84; RESP 16
[2016-11-14] MEDS: Benzocaine (Dermoplast) 20% 60 Gm Spray TOPICAL PRN (17:50)
[2016-11-14] MEDS: Witch Hazel-Glycerin Pads TOPICAL PRN (17:50)
[2016-12-14] MEDS ORDERED: MULT-1018 PO (16:59)
[2016-12-14] MEDS ORDERED: SERT50TA9 PO (16:59)
[2016-12-14] MEDS ORDERED: PREN-100 PO (16:59)
== END 2016-11-14 18:00 | disposition home or self-care (01) | DRG 775 ==
LOC: FBCO 22:36 → FBC 11-13 00:10
PROVIDERS: ADMIT Family Medicine; ATTEND Family Medicine
PROC: 10E0XZZ Delivery of Products of Conception, External Approach (ICD-10-PCS; principal; 2016-11-14)
PROC: 10907ZC Drainage of Amniotic Fluid, Therapeutic from Products of Conception, Via Natural or Artificial Opening (ICD-10-PCS; 2016-11-14)
PROC: 0W8NXZZ Division of Female Perineum, External Approach (ICD-10-PCS; 2016-11-14)
DX: O69.81X0 Labor and delivery complicated by cord around neck, without compression, not applicable or unspecified (principal); D64.9 Anemia, unspecified; O90.81 Anemia of the puerperium; O69.89X0 Labor and delivery complicated by other cord complications, not applicable or unspecified; Z3A.39 39 weeks gestation of pregnancy; Z37.0 Single live birth; Z87.891 Personal history of nicotine dependence

== ENCOUNTER 2016-12-16 11:36 | Day surgery (SDC) | payer MEDICAID ==
[~2016-12-16] VITALS: Ht 172.7 cm; Wt 79.8 kg
[2016-12-16] VITALS (10 sets, daily range): BP systolic 104–118; BP diastolic 57–74; PULSE 53–78; RESP 14–19; O2SAT 97–100
--- NOTE | 2016-12-16 07:08 | PCM.HPANE ---
Patient Data Surgeon Admitting Provider: Attending Provider:Leo Gutierrez MD Primary Care Physician:Rosalinda Quinteros MD Other Provider:Bessie Castilloingham Anesthesia Reason for Visit Recurrent Biliary Colic Ht/WT & BMI Height (Feet): 5 Height (Inches): 8 Weight (Kilograms): 79.83 Body Mass Index 26.00 Allergies Coded Allergies: ibuprofen (Verified Allergy, Unknown, 08/16/16) Past Anesthesia History Anesthesia History: Denies:: Abnormal Airway, Anesthesia Reactions (epidural with labor only), Difficult Intubation, Fam Anesthesia Reaction, Fam Malignant Hypertherm, Malignant Hyperthermia Diabetes History Hx Diabetes?: No MRSA MRSA: No Medications Hypertension Medication: No Home Meds Incl Beta Lin[place]: No Reported Medications Multivitamin (Multi Vitamin Daily)1 Each Tablet1 Each PO DAILY 30 Days Ref 0 12/14/16 Vits #90/Iron Fum/FA ( Formula Tablet)1 Each Tablet1 Each PO DAILY 12/14/16 Sertraline HCl (Sertraline)50 Mg [id number] Mg PO DAILY 30 Days Ref 0 12/14/16 Discontinued Reported Medications Sertraline HCl (Sertraline)20 Mg/1 Ml Oral.conc50 Mg PO DAILY PRN AD #1 BOTTLE Ref 0 11/13/16 Pnv95/Ferrous Fumarate/FA ( Vitamin Tablet)28 Mg Iron-800 Mcg Tablet1 Each PO DAILY 11/13/16 Discontinued Scripts [Ascorbic Acid] (Vitamin C)500 MG TABLET No Conflict [id number] Mg PO BIDWM #60 Ref 2 Prov:Rosalinda Quinteros MD 11/14/16 Docusate Sodium (Colace)100 Mg [id number] Mg PO BID #60 CAPSULE Ref 2 Prov:Rosalinda Quinteros MD 11/14/16 Sertraline HCl (Sertraline)50 Mg Zfoody32 Mg PO DAILY #30 TABLET Ref 2 Prov:Rosalinda Quinteros MD 11/14/16 Hydrocodone-Acetaminophen 5-325 mg 1 Each Tablet1-2 Tablet PO Q4H PRN For Pain # 20 TABLET Prov:Rosalinda Quinteros MD 11/14/16 Ferrous Sulfate (Feosol)325 Mg Iqobef396 Mg PO BIDWM #60 TABLET Ref 2 Prov:Rosalinda Quinteros MD 11/14/16 History History of ENT Problems?: Yes HEENT History: Positive for:: TMJ (grinds, no nightguard) Denies:: Abnormal Airway Cataracts Glaucoma Hearing Problem Denture Type: None Teeth Condition: Tooth Decay Inflamed Gums Other History/Comment Prominent tooth decay front upper teeth Hx of Heart Problems?: No Cardiovascular History: Denies:: AICD Congestive Heart Failure Heart Murmur Hypertension Irregular Heartbeat Pacemaker Hx of Respiratory Problem?: Yes Respiratory History: Positive for:: Tuberculosis (2010, treated and clear now ) Denies:: Asthma COPD Emphysema Oxygen Administration Pneumonia Use of C-PAP Machine Use of Inhalers / NEBS Hx Neurologic Problems?: No Neurological History: Positive for:: Seizures (single seizure at age 14 ) Denies:: CVA Headaches Multiple Sclerosis Parkinson's Disease Hx of GI Problems?: Yes Hx of Problems?: No Genitourinary History: Denies:: Kidney Stones Urinary Tract Infection Female Hx: Positive for:: Problems with Breasts? (lumps in breasts since breast feeding ) Denies:: Currently (post delivered 11/13/16) Endometriosis Skin History: Denies:: History Skin Disorders? Pressure Ulcers Hx Musculoskeletal Problems?: Yes Musculoskeletal History: Positive for:: Back Injury (low back pains) Musculoskeletal Trauma (hips) Denies:: Fibromyalgia Joint Replacement Myasthenia Gravis Osteoarthritis Systemic Lupus Hx of Psycho/Social Problems?: Yes Psycho Social History: Positive for:: Hx Depression Denies:: Anxiety Hx Surgeries?: No (no prior surgery (labor epidural only)) Hx Any Other Health Problems?: Yes Other History: Denies:: Cancer Thyroid Disease History Blood Transfusions: Positive for:: Accept Blood Products? Denies:: Blood Transfusions Hx Diabetes: No Hx Alcohol Use: NoHx Substance Use: No Smoking Status: Former Smoker Have You Smoked inLast 12 mo: Yes (quit 9-10 mos ago) Stop/Bang S-Snoring: Do You Snore Loudly: No T-Tired: feel tired, fatigued: Yes O-Obsered: Observed not breath: No P-Blood Pressure: treated: No B- Body Mass Index > 35 kg/m2: No A- Age over 50: No N- Neck Large Circumference: No G- Gender Male: No BLANCA Total Score: 1 Risk Assessment Category Category 1A: Patient has history of documented sleep apnea, and HAS NOT received any narcotic, sedative or anesthesia administration during this stay. Category 1B: Patient has history of documented sleep apnea, and HAS received any narcotic , sedative or anesthesia administration during this stay Category 2: Patient has SUSPECTED Obstructive Sleep Apnea, and HAS received any narcotic , sedative or anesthesia administration during this stay. Category 3: Patient has SUSPECTED Obstructive Sleep Apnea and HAS NOT received narcotic, sedative or anesthesia administration during this stay. Category 4: Outpatient in Procedural Areas with known sleep apnea or who screen positive for High Risk via the STOP/BANG questionnaire. Exam Exam General Appearance: Alert, Oriented X3, Cooperative HEENT/AIRWAY: MP 2, Neck Movement (from), Mouth Opening (wnl) Lungs: Clear to Auscultation, Normal Air Movement Heart: Exam Unremarkable Plan Impression Patient chart reviewed, patient interviewed and anesthestic plan with risks, benefits, and alternatives discussed, and informed consent obtained. ASA Physical Status: ASA2 Mod Systemic Disease Anesthetic Plan: GA Bene/Risks/Altern/Consents: Yes HP Complete Prior to Induction: Yes Emir Elias MD December 16, 2016 07:08
[~2016-12-16 11:36] MED LIST: LORazepam 1 mg Tablet PO PRN; Lactated Ringer's 1,000 ML IV SCH; MULT-1018 PO; PREN-100 PO; SERT50TA9 PO; fentaNYL-PF 50 mCg/mL 2 mL Inj IVPUSH PRN
[2016-12-16] MEDS ORDERED: Rocuronium 10 mg/mL 5 mL Inj ONE (11:37)
[2016-12-16] MEDS ORDERED: fentaNYL-PF 50 mCg/mL 2 mL Inj ONE (11:37)
[2016-12-16] MEDS ORDERED: Dexamethasone 4 mg/mL Inj ONE (11:37)
[2016-12-16] MEDS ORDERED: EPHEDrine/NS 5 mg/mL 5 mL Syringe ONE (11:37)
[2016-12-16] MEDS ORDERED: Propofol 10,000 mCg/mL 20 mL Inj ONE (11:37)
[2016-12-16] MEDS ORDERED: Ondansetron 2 mg/mL 2 mL Inj ONE (11:37)
[2016-12-16] MEDS ORDERED: Neostigmine 1 mg/mL 10 mL Inj ONE (11:37)
[2016-12-16] MEDS ORDERED: Glycopyrrolate 0.2 MG/ML 1mL Inj ONE (11:37)
[2016-12-16] MEDS ORDERED: Lactated Ringer's 1,000 ML IV ONE (12:14)
[2016-12-16] MEDS ORDERED: Lactated Ringer's 500 ML IV PRN (13:41)
[2016-12-16] MEDS ORDERED: Lactated Ringer's 1,000 ML IV SCH (13:41)
[2016-12-16] MEDS ORDERED: EPHEDrine Sulfate 50 mg/mL Inj IVPUSH PRN (13:45)
[2016-12-16] MEDS ORDERED: Phenylephrine 10,000 mCg/mL Inj IVPUSH PRN (13:45)
[2016-12-16] MEDS ORDERED: Dexamethasone 4 mg/mL Inj IVPUSH PRN (13:45)
[2016-12-16] MEDS ORDERED: EPHEDrine Sulfate 50 mg/mL Inj IM PRN (13:45)
[2016-12-16] MEDS ORDERED: Labetalol 5 mg/mL 4 mL Inj IV PRN (13:45)
[2016-12-16] MEDS ORDERED: HYDROmorphone 1 mg/mL Inj IVPUSH PRN (13:45)
[2016-12-16] MEDS ORDERED: fentaNYL-PF 50 mCg/mL 2 mL Inj IVPUSH PRN (13:45)
[2016-12-16] MEDS ORDERED: hydrOXYzine Inj 50 MG/1 mL SDV IM PRN (13:45)
[2016-12-16] MEDS ORDERED: Atropine 0.4 mg/mL Inj IVPUSH PRN (13:45)
[2016-12-16] MEDS ORDERED: Ondansetron 2 mg/mL 2 mL Inj IVPUSH PRN (13:45)
[2016-12-16] MEDS ORDERED: hydrALAZINE 20 mg/mL Inj IVPUSH PRN (13:45)
[2016-12-16] MEDS ORDERED: Bupivacaine-MPF 0.25% 30 mL Inj INFILTRATE ONE (14:38)
--- NOTE | 2016-12-16 15:28 | PCM.ANEP1 ---
Post Anesthesia Phase 1 PACU Phase 1 Assessment Vital Signs Vital Signs Date Time Temp Pulse Resp B/P Pulse Ox O2 Delivery O2 Flow Rate FiO2 12/16/16 15:20 77 15 111/57 100 Simple Mask 8 12/16/16 15:15 36.9 78 19 118/58 100 Simple Mask 8 12/16/16 12:05 36.6 58 14 114/74 99 Room Air Anesthetic Administered: GA Level of Alertness: Awake, talking LERMA's with Equal Strength: Yes Pain: No Nausea or Vomiting: No Lungs: Normal Air Movement Complications: No Follow up Care: No Emir Elias MD December 16, 2016 15:28
--- NOTE | 2016-12-16 22:27 | OP ---
[address] [address] OPERATIVE REPORT PATIENT: NAVDEEP ANDRE : 1990 MR#: [id number] ADMIT: 12/16/2016 JOB ID: [id number] DATE OF SURGERY: 12/16/2016 ANESTHESIA: General. PREOPERATIVE DIAGNOSIS(ES): Symptomatic cholelithiasis. POSTOPERATIVE DIAGNOSIS(ES): Symptomatic cholelithiasis. OPERATIVE PROCEDURE: Laparoscopic cholecystectomy. SURGEON: Dr. Leo Gutierrez. ASSISTANTS: Patrick Hernandez PA-C (the miller head assistant wet process was required for the safe and timely completion of the case). COMPLICATIONS: None. ESTIMATED BLOOD LOSS: Less than 10 mL. CONDITION: Satisfactory. SPECIMEN: Gallbladder. FINDINGS: The gallbladder appeared unremarkable. INDICATIONS/SIGNIFICANT HISTORY: The patient is a 26-year-old female, one month , who throughout her and after has been experiencing postprandial right upper quadrant abdominal pain particularly associated with fatty meals. Ultrasound demonstrated cholelithiasis and she was referred to me. She came to me in the 3rd trimester at which time I recommended waiting until she delivered to remove the gallbladder. OPERATIVE TECHNIQUE: The patient was taken into the operating room and placed in supine position. General anesthesia was administered. The abdomen was prepped and draped in standard surgical fashion and a procedural pause was performed. Entry was gained into the abdomen through a supraumbilical incision using a 10 mm Optiview trocar. Pneumoperitoneum was achieved without complication. Local anesthetic was injected, followed by insertion of 5 mm ports in the subxiphoid as well as two in the right upper quadrant. Gallbladder was grasped and retracted cephalad and dissection begun to identify the cystic duct and cystic artery. As I was dissecting around the cystic duct/gallbladder junction, a small ductotomy was inadvertently made with minimal spillage of bile. After identifying the duct and artery, three clips were placed on the duct and one on the artery and the duct was taken sharply and the artery with cautery. There was also a posterior arterial branch that was subsequently identified. It took three clips to completely control that. The remainder of the dissection of the gallbladder off the cystic plate was then completed. The clip on the gallbladder came loose and a small amount of bile was spilled. The gallbladder was then placed in an EndoCatch bag and removed through the umbilical port site. The fascia was closed with an 0 PDS suture. I then copiously irrigated the surgical bed and it was completely hemostatic and free of bile. The lateral ports were then removed under direct visualization followed by release of pneumoperitoneum and removal of the remaining port. Skin was closed using Monocryl. The entire procedure was well tolerated without complication.
--- NOTE | 2016-12-20 14:45 | PATH ---
SURGICAL PATHOLOGY Attending Physician:Leo Gutierrez MD CASE STATUS: Signed Out PATIENT NAME: NAVDEEP ANDRE PID: [id number] : 1990 DATE COLLECTED:12/16/2016 00:00 SPECIMEN: Gallbladder CLINICAL HISTORY: 1). GALLBLADDER FINAL DIAGNOSIS: 1.GALLBLADDER: CHOLELITHIASIS WITH ASSOCIATED CHRONIC CHOLECYSTITIS. ICD10 code K80.66 GROSS DESCRIPTION: The specimen is received in one formalin filled container labeled with the patient's name, sublabeled "gallbladder" and consists of an intact 10.0 x 2.5 x 2.0 CM gallbladder. The serosa is smooth. The wall is 0.2-0.3 CM in thickness. The mucosa is a dark green in color. The lumen contains a dark green mucoid material and approximately 10-15 green caballero rough calculi which range in size from 0.1-0.4 CM in greatest dimension. 5 medical customer service representative sections are submitted in one cassette. 12/17/2016 [facility] MICRO DESCRIPTION: See diagnosis. ICD-9 CODES: CPT CODES: 1: 42967 Electronically Signed Out Trey Henderson MD [facility] [address], [place] [address] Technical component performed at [facility], [facility] [address], [address]
== END 2016-12-16 23:59 | disposition home or self-care (01) ==
LOC: SAS 11:36
PROVIDERS: ATTEND General Practice
DX: K80.10 Calculus of gallbladder with chronic cholecystitis without obstruction (principal); F32.9 Major depressive disorder, single episode, unspecified; Z86.11 Personal history of tuberculosis; Z87.891 Personal history of nicotine dependence
CPT/HCPCS: 47562; 88304; J1100; J2175; J2250; J2405; J2710; J3010; J7120